=== PATIENT | female | born 1965 | race American Indian/Alaskan Native ===

== ENCOUNTER 2018-03-25 21:01 | Emergency (ER) | payer BC ==
[2018-03-25 21:24] VITALS: BP 207/134
[2018-03-25] MEDS ORDERED: NORVASC ONE (21:38)
[2018-03-25] MEDS ORDERED: NORVASC PO ONE (21:43)
== END 2018-03-26 00:50 | disposition left against medical advice (07) ==
LOC: ED 21:01
DX: M25.552 Pain in left hip (principal); Z53.21 Procedure and treatment not carried out due to patient leaving prior to being seen by health care provider